=== PATIENT | female | born 1995 | race Caucasian/White ===

== ENCOUNTER 2017-03-11 19:45 | Emergency (ER) | payer OTHER ==
[~2017-03-11] VITALS: Ht 162.6 cm; Wt 89.0 kg
[~2017-03-11 19:45] MED LIST: DENIES
[2017-03-11 19:50] VITALS: Ht 162.6 cm; Wt 89.0 kg
[2017-03-11] MEDS ORDERED: SOD CHLORIDE 0.9% 1,000 ML IV ONE (22:00)
[2017-03-11] MEDS ORDERED: ONDANSETRON 4 MG INJ IV STA (22:00)
[2017-03-11] MEDS ORDERED: ACETAMINOPHEN 325 MG TAB PO ONE (22:00)
--- NOTE | 2017-03-11 22:00 | ERD ---
ER Documentation Chief Complaint Chief Complaint 14 wks ,, headache, denies ob problems HPI WHYTE, temporal described as squeezing, started this morning, pt has not taken anything for symptoms , 14 weeks . pt reports vomiting. denies ABD pain, vaginal bleeding ROS All systems reviewed and are negative except as per history of present illness. Medications Home Meds Reported Medications [Denies] No Conflict Check 06/15/11 Allergies Allergies: Coded Allergies: No Known Allergy (Unverified , 10/11/13) PMhx/Soc Medical and Surgical Hx: pt denies Medical Hx, pt denies Surgical Hx History of Surgery: No Anesthesia Reaction: No Hx Neurological Disorder: No Hx Respiratory Disorders: No Hx Cardiac Disorders: No Hx Psychiatric Problems: No Hx Miscellaneous Medical Probl: No Hx Alcohol Use: No Hx Substance Use: No Hx Tobacco Use: No Smoking Status: Never smoker Physical Exam Vitals Vital Signs Date Time Temp Pulse Resp B/P Pulse Ox O2 Delivery O2 Flow Rate FiO2 03/11/17 19:50 98.5 77 20 135/78 99 Physical Exam Const: Nourished well appearing 21-year-old 14 week female in no acute distress Head: Atraumatic Eyes: Normal Conjunctiva, PERRLA, EOMI ENT: Membranes translucent, nasal mucosa moist, pharynx pink, uvula midline rises and falls with pronation Neck: Resp: Clear to auscultation bilaterally Cardio: Regular rate and rhythm, no murmurs Abd: Skin: Back: Ext: No cyanosis, or edema Neuro: Alert and oriented Face: EOMI, face and pharynx with normal sensation and function Motor: Normal strength throughout Sensation: Normal sensation throughout Speech: Normal Cerebel: Normal coordination Normal gait Psych: Normal Mood and Affect Results 24 hrs Laboratory Tests Test 03/12/17 00:10 Urine Color STRAW Urine Clarity CLEAR Urine pH 6.0 Urine Specific [place] 1.005 Urine Ketones NEGATIVEmg/dL Urine Nitrite NEGATIVEmg/dL Urine Bilirubin NEGATIVEmg/dL Urine Urobilinogen NEGATIVEmg/dL Urine Leukocyte Esterase TRACELeu/ul Urine Microscopic RBC 0/HPF Urine Microscopic WBC 2/HPF Urine Squamous Epithelial Cells FEW/HPF Urine Bacteria FEW/HPF Urine Hemoglobin NEGATIVEmg/dL Urine Glucose NEGATIVEmg/dL Urine Total Protein NEGATIVEmg/dl Current Medications Medications (Trade) Dose Ordered Sig/Nayla Route PRN Reason Start Time Stop Time Status Last Admin Dose Admin Sodium Chloride (NS) 1,000 ml @ 1,000 mls/hr Q1H ONCE IV 03/11/17 22:00 03/11/17 22:59 DC 03/11/17 22:13 Acetaminophen (Tylenol Tab) 650 mg ONCE ONCE PO 03/11/17 22:00 03/11/17 22:03 DC 03/11/17 22:13 Ondansetron HCl (Zofran Inj) 4 mg ONCE STAT IV 03/11/17 22:00 03/11/17 22:03 DC 03/11/17 22:12 Procedures/MDM This 21-year-old female presents to emergency department with her significant other for complaint of headache, patient reports headache has been symptomatic all day described as pressure bilateral temples, patient is 14 weeks , reports she has been vomiting all day, difficulty in holding using in her stomach, she has not taken anything for her headache, states that she was told she could not use any [id number] medication. Teaching provided that she can use Tylenol as directed, as long as she is not allergic to the medication, patient denies any known acetaminophen allergy. Emergency room course includes history and physical exam, I have little to no suspicion for a subarachnoid bleed or subdural hematoma or mass. Plan to treat patient with 1 L of normal saline, 4 mg of IV Zofran, and 650 mg of Tylenol, patient reassessed after 40 minutes with improvement of symptoms. Plan to discharge patient home with Zofran, Tylenol, instructed to follow-up with [facility] for list of medications appropriate to take during . Patient is tolerating liquids by the time she leaves emergency room laughing, smiling, well-appearing, Patient is stable with no new complaints during ER course, clinically there is no current evidence to suggest meningitis, sepsis, acute abdomen, subarachnoid bleed, intracranial mass or any other emergent condition appearing to require further evaluation or hospitalization. I feel the patient is stable for discharge at this time. I have discussed results, examination findings, the treatment plan with the patient and family present prior to discharge. Indications for emergent reevaluation, side effects of medication were also discussed. All questions were answered. Patient verbalizes understanding and agrees with plan of care. Departure Diagnosis: Primary Impression: Nausea & vomiting Vomiting type: unspecified Vomiting Intractability: non-intractable Qualified Code: R11.2 - Non-intractable vomiting with nausea, unspecified vomiting type Additional Impression: Headache Headache type: unspecified Headache chronicity pattern: acute headache Intractability: not intractable Qualified Code: R51 - Acute nonintractable headache, unspecified headache type Patient Instructions: Nausea and Vomiting-Adult, Self-Care for Headaches Additional Instructions: Thank you for for coming to [facility] for your care today. Please ask your nurse or provider if you have questions about your care today and do not leave until all your questions have been answered. Please use any medications given as directed and follow-up with your doctor (or the doctor you were referred to) in the next 2-3 days. If you do not have a primary care doctor you may follow up at the [facility] (listed below). You may also use motrin and tylenol as needed for fever and/or pain unless instructed otherwise by your provider or nurse. Indications for more urgent follow-up have been discussed, but you may return to the Emergency Department at ANY time for any worrisome or worsening symptoms. If you have abdominal pain, please know that no test or exam you received is perfect and you should follow up within 8 hours for continued pain. If you had any imaging studies today, such as an X-Ray or CT Scan, these studies will be reviewed later by a radiologist. You will be called if there are important findings that were not identified today, so make sure the contact information you provided at registration is correct. If you received any narcotic pain control medicine today, such as Vicodin, Morphine or Dilaudid, your coordination and judgment may be affected for a number of hours. Please do not drive or operate heavy machinery, and you may want someone to assist you at home. If you were given a prescription for narcotic medication, be aware that it is very addictive- use sparingly and only if necessary. DAVID BRAGG Mar 11, 2017 22:00
[2017-03-12] MEDS ORDERED: ONDA4TAB14 PO (01:17)
[2017-03-12] MEDS ORDERED: ACET500C5 PO (01:18)
[2017-03-12 01:35] VITALS: BP 100/57; PULSE 67; RESP 16
== END 2017-03-12 01:36 | disposition home or self-care (01) ==
LOC: FTE 19:45
DX: O21.9 Vomiting of pregnancy, unspecified (principal); O99.89 Other specified diseases and conditions complicating pregnancy, childbirth and the puerperium; R51 Headache; Z3A.14 14 weeks gestation of pregnancy
CPT/HCPCS: 81001; 96374; J2405; J7030; Z7502; Z7610

== ENCOUNTER 2017-07-13 15:42 | Outpatient (CLI) | END 2017-07-13 20:23 | disposition home or self-care (01) ==

== ENCOUNTER 2017-08-15 19:41 | Outpatient (CLI) | END 2017-08-15 22:20 | disposition home or self-care (01) ==

== ENCOUNTER 2017-08-31 11:54 | Inpatient (IN) | END 2017-09-03 11:55 | disposition home or self-care (01) | DRG 775 ==